=== PATIENT | female | born 1995 | race Caucasian/White ===

== ENCOUNTER 2021-10-03 09:57 | Emergency (ER) | payer OTHER ==
[~2021-10-03] VITALS: Ht 160 cm; Wt 98.8 kg
[2021-10-03 10:05] VITALS: BP 140/93
--- NOTE | 2021-10-03 10:30 | PHYS DOC ---
Past History Past Surgical History: No Surgical History Alcohol Use: Occasionally General Adult EDM: Chief Complaint: ANKLE PROBLEM HPI: HPI: Patient is a 25-year-old female who presents to the emergency department for right lateral ankle pain after she twisted it this morning. Patient rates pain 6 out of 10. She is able to bear weight and ambulate, she denies any decreased range of motion, decreased sensation in her extremity. No treatment prior to arrival. Review of Systems: Review of Systems: Musculoskeletal: See HPI Integument: See HPI Neurologic: See HPI Allergies: Allergies: Allergies Coded Allergies Type Severity Reaction Last Updated Verified No Known Drug Allergies 10/03/21 No Physical Exam: PE: Constitutional: Well developed, well nourished, no acute distress, non-toxic ap pearance. [] HENT: Normocephalic, atraumatic Eyes: PERRL, EOMI, conjunctiva normal, no discharge. [] Neck: Normal range of motion, Cardiovascular: Normal peripheral perfusion Lungs & Thorax: Normal work of breathing, no tachypnea Abdomen: Obese, soft Skin: Warm, dry, no erythema, no rash. [] Back: Normal range of motion Extremities: No tenderness, no cyanosis, no clubbing, ROM intact, no edema. [] Right ankle: Swelling noted to lateral aspect of right ankle, pain with palpation to lateral aspect of right ankle, range of motion intact, neuro intact, no obvious deformity, no crepitus, no wounds/ecchymosis Neurologic: Alert and oriented X 3, normal motor function, normal sensory function, no focal deficits noted. [] Psychologic: Affect normal, judgement normal, mood normal. [] Current Patient Data: Vital Signs: Vital Signs Date Time Temp Pulse Resp B/P (MAP) Pulse Ox O2 Delivery O2 Flow Rate FiO2 10/03/21 10:05 97.7 84 20 140/93 (109) 97 Room Air EKG: EKG: [] Radiology/Procedures: Radiology/Procedures: []PROCEDURE: ANKLE RIGHT 3V 3 views right ankle 10/03/2021 10:29 AM Indication: Right ankle injury, pain: Comparison: None Findings: There is no acute fracture or dislocation. Articular surfaces are uninterupted and smooth. Soft tissues are unremarkable. Impression: No evidence of acute osseous abnormality. Electronically signed by: Celso Irizarry MD (10/03/2021 10:39 AM) [id number] DICTATED AND SIGNED BY: CELSO IRIZARRY MD DATE: 10/03/21 1038 CC: JOCELINE LITTLE APRN; FAUSTO PRINCE ~MTH0 0 Heart Score: C/O Chest Pain: N/A Risk Factors: Risk Factors: DM, Current or recent (<one month) smoker, HTN, HLP, family history of CAD, obesity. Risk Scores: Score 0 - 3: 2.5% MACE over next 6 weeks - Discharge Home Score 4 - 6: 20.3% MACE over next 6 weeks - Admit for Clinical Observation Score 7 - 10: 72.7% MACE over next 6 weeks - Early Invasive Strategies Course & Med Decision Making: Course & Med Decision Making Pertinent Labs and Imaging studies reviewed. (See chart for details) [] Patient resents to the emergency department for lateral right ankle pain after twisting it this morning. An x-ray was performed that showed no acute fin dings. Patient has range of motion intact and is neurovascularly intact. Patient was given ice pack. Ankle was placed in Neno wrap. Patient educated on the rice protocol. Advised to take Tylenol and ibuprofen for pain. I discussed with patient all findings and diagnostic testing as well as the need to follow- up with PCP for further evaluation and treatment or return to the ER if any new or worsening symptoms. Strict return precautions were also discussed at length. Patient voiced understanding and agreement with the plan. Patient is hemodynamically stable at the time of disposition. Dragon Disclaimer: Dragjethro Disclaimer: This electronic medical record was generated, in whole or in part, using a voice recognition dictation system. Departure Departure: Impression: Primary Impression: Ankle sprain Qualified Codes: S93.401A - Sprain of unspecified ligament of right ankle, initial encounter Disposition: HOME / SELF CARE / HOMELESS Condition: GOOD Referrals: FAUSTO PRINCE (PCP) Patient Instructions: RICE - Routine Care for Injuries Additional Instructions: You were seen in the emergency department today for ankle pain, and x-ray was pe rformed that showed no acute findings. This will likely improve over time. Your symptoms may be improved by something called the rice protocol. This is rest, ice, compression, elevation. Please follow-up when doing intense exercises that may make the pain worse. Sometimes gentle stretching can provide relief, but be careful to injury. It is important to perform gentle range of motion exercises to prevent stiff joints and chronic pain. Use ice packs over the affected areas to help decrease your pain. For the first 24 hours you can apply ice 20 minutes on 20 minutes off for 4 times per day. Sometimes compression such as the use of an Neno wrap can help with the swelling. You may also elevate the affected area to help with the swelling. Take Tylenol or ibuprofen at home for pain. Follow-up with your primary care provider within 2 days. Return to the emergency department if you develop worsening of your pain, inability to bear weight or walk, decreased sensation in your foot, decreased range of motion. OJCELINE LITTLE APRN Oct 03, 2021 10:30
--- NOTE | 2021-10-03 10:42 | RAD ---
3 views right ankle 10/03/2021 10:29 AM Indication: Right ankle injury, pain: Comparison: None Findings: There is no acute fracture or dislocation. Articular surfaces are uninterupted and smooth. Soft tissues are unremarkable. Impression: No evidence of acute osseous abnormality. Electronically signed by: Celso Gomes MD (10/03/2021 10:39 AM) [id number]
== END 2021-10-03 11:02 | disposition home or self-care (01) ==
LOC: ER 09:57
DX: S93.401A Sprain of unspecified ligament of right ankle, initial encounter (principal); X50.9XXA Other and unspecified overexertion or strenuous movements or postures, initial encounter; Y93.89 Activity, other specified; Y92.89 Other specified places as the place of occurrence of the external cause; Y99.8 Other external cause status
CPT/HCPCS: 73610; 99283